=== PATIENT | female | born 1985 | race Caucasian/White ===

== ENCOUNTER → 2019-04-26 | Outpatient (REF) | payer OTHER, MEDICAID ==
[2019-04-26 16:40] LABS: HEMATOCRIT 40.5 % (36.0-47.0); HEMOGLOBIN 12.6 g/dl (12.0-15.5); MEAN CORPUSCULAR HGB CONC 31.1 g/dl (32.0-36.5); WHITE BLOOD COUNT 6.3 10^3/uL (4.0-10.0)
[2019-04-26 16:47] LABS: ALBUMIN 3.7 GM/DL (3.2-5.2); ALT/SGPT 19 U/L (12-78); BILIRUBIN,TOTAL 0.2 MG/DL (0.2-1.0); BLOOD UREA NITROGEN 11 MG/DL (7-18); CALCIUM LEVEL 8.5 MG/DL (8.5-10.1); CARBON DIOXIDE LEVEL 28 MEQ/L (21-32); CHLORIDE LEVEL 108 MEQ/L (98-107); CREATININE FOR GFR 0.66 MG/DL (0.55-1.30); GLOMERULAR FILTRATION RATE > 60.0 (>60); GLUCOSE, FASTING 81 MG/DL (70-100); POTASSIUM SERUM 4.4 MEQ/L (3.5-5.1); SODIUM LEVEL 142 MEQ/L (136-145); TOTAL PROTEIN 6.8 GM/DL (6.4-8.2)
[2019-04-26 18:03] LABS: PLATELET COUNT, AUTOMATED 93 10^3/uL (150-450)
== END ==
LOC: M SFHCLACO 15:17
PROVIDERS: ATTEND Physician Assistant
DX: D64.9 Anemia, unspecified (principal); D50.0 Iron deficiency anemia secondary to blood loss (chronic); K21.9 Gastro-esophageal reflux disease without esophagitis; R73.9 Hyperglycemia, unspecified

== ENCOUNTER → 2020-09-02 | Outpatient (REF) | payer OTHER, MEDICAID ==
[2020-09-02 13:05] LABS: ALBUMIN 3.9 GM/DL (3.2-5.2); ALT/SGPT 15 U/L (12-78); BILIRUBIN,TOTAL 0.5 MG/DL (0.2-1.0); BLOOD UREA NITROGEN 7 MG/DL (7-18); CALCIUM LEVEL 9.1 MG/DL (8.5-10.1); CARBON DIOXIDE LEVEL 30 MEQ/L (21-32); CHLORIDE LEVEL 107 MEQ/L (98-107); CREATININE FOR GFR 0.73 MG/DL (0.55-1.30); GLOMERULAR FILTRATION RATE > 60.0 (>60); GLUCOSE, FASTING 65 MG/DL (70-100); HEMATOCRIT 42.7 % (36.0-47.0); HEMOGLOBIN 13.3 g/dl (12.0-15.5); MAGNESIUM LEVEL 2.3 MG/DL (1.8-2.4); MEAN CORPUSCULAR HEMOGLOBIN 27.8 pg (27.0-33.0); MEAN CORPUSCULAR HGB CONC 31.1 g/dl (32.0-36.5); MEAN CORPUSCULAR VOLUME 89.1 fl (80.0-96.0); PLATELET COUNT, AUTOMATED 84 10^3/uL (150-450); POTASSIUM SERUM 4.5 MEQ/L (3.5-5.1); RED BLOOD COUNT 4.79 10^6/uL (4.00-5.40); SODIUM LEVEL 139 MEQ/L (136-145); TOTAL PROTEIN 6.9 GM/DL (6.4-8.2); WHITE BLOOD COUNT 6.8 10^3/uL (4.0-10.0)
[2020-09-04 07:07] LABS: CREATININE, URINE 273.4 mg/dL (20.0-300.0); TRAMADOL, URINE Positive (Cutoff=200); TRAMADOL, URINE (GC/MS) >5000 ng/mL (Cutoff=100)
== END ==
LOC: M SFHCADAM 10:01
PROVIDERS: ATTEND Physician Assistant
DX: D69.6 Thrombocytopenia, unspecified (principal); D50.0 Iron deficiency anemia secondary to blood loss (chronic); Z79.899 Other long term (current) drug therapy; K21.00 Gastro-esophageal reflux disease with esophagitis, without bleeding

== ENCOUNTER → 2020-11-23 | Outpatient (REF) | payer OTHER, MEDICAID ==
[2020-11-23 18:30] LABS: HEMATOCRIT 41.6 % (36.0-47.0); HEMOGLOBIN 12.9 g/dl (12.0-15.5); MEAN CORPUSCULAR HEMOGLOBIN 27.7 pg (27.0-33.0); MEAN CORPUSCULAR VOLUME 89.5 fl (80.0-96.0); PLATELET COUNT, AUTOMATED 102 10^3/uL (150-450); RED BLOOD COUNT 4.65 10^6/uL (4.00-5.40); WHITE BLOOD COUNT 4.7 10^3/uL (4.0-10.0)
[2020-11-23 18:59] LABS: BLOOD UREA NITROGEN 10 MG/DL (7-18); CALCIUM LEVEL 9.5 MG/DL (8.5-10.1); CARBON DIOXIDE LEVEL 29 MEQ/L (21-32); CHLORIDE LEVEL 106 MEQ/L (98-107); CREATININE FOR GFR 0.66 MG/DL (0.55-1.30); GLOMERULAR FILTRATION RATE > 60.0 (>60); GLUCOSE, FASTING 84 MG/DL (70-100); POTASSIUM SERUM 4.6 MEQ/L (3.5-5.1); SODIUM LEVEL 141 MEQ/L (136-145)
== END ==
LOC: M SFHCADAM 12:10
PROVIDERS: ATTEND Physician Assistant
DX: Z01.419 Encounter for gynecological examination (general) (routine) without abnormal findings (principal)

== ENCOUNTER → 2020-12-29 | Outpatient (CLI) | payer OTHER, MEDICAID ==
--- NOTE | 2020-12-31 02:09 | ECWPNPC ---
PATIENT NAME: VIKY ARRIOLA : 1985 GENDER: FEMALE VISIT DATE: 12/29/2020 DISCHARGE DATE: 12/29/20 1348 VISIT LOCKED DATE TIME: PHYSICIAN: JONAH GAITAN PHYSICIAN PAGER NO: ACTIVE RESOURCE: JONAH GAITAN REASON FOR APPOINTMENT 1. BACK PAIN HISTORY OF PRESENT ILLNESS DEPRESSION SCREENING: PHQ-2 (2015 EDITION) LITTLE INTEREST OR PLEASURE IN DOING THINGS?NOT AT ALL FEELING DOWN, DEPRESSED, OR HOPELESS?SEVERAL DAYS TOTAL SCORE1 35-YEAR-OLD FEMALE IN FOR INITIAL PAIN CONSULT REGARDING LOW BACK PAIN. PATIENT IS CURRENTLY ON TRAMADOL AND ADMITS THAT THIS DOES NOT HELP HER PAIN SHE FURTHER STATES SHE HAS BEEN ON GABAPENTIN IN THE PAST AND THAT DID NOT HELP HER PAIN EITHER. WHEN ASKED PATIENT DENIES RECENT MRI. SHE DOES STATE THAT SHE WAS SEEN BY [facility] IN [place] HOWEVER SHE HAD TO STOP SEEING THEM SHE WAS FREQUENTLY MISSING APPOINTMENTS. SHE RATES HER PAIN CURRENTLY AT A 9 OUT OF 10 AND DESCRIBES IT ACHING, BURNING, THROBBING, AND NUMBNESS. GENERAL: - - -. FALL RISK SCREENING: SCREENING ONE FALL REPORTED IN THE LAST YEAR WITH [facility]. PATIENT SOUGHT TREATMENT AT URGENT CARE.. PAIN SCREENING: PATIENT HAS A COMPLAINT OF ACUTE OR CHRONIC PAIN :YES LOCATION OF PAIN:LOW BACK INTENSITY OF PAIN (SCALE OF 1 TO 10):9 WHAT DOES YOUR PAIN FEEL LIKE:ACHING, BURNING, THROBBING, OTHER NUMBNESS DURATION:CONTINOUS, AWAKENS FROM SLEEP PAIN IS INCREASED BY:ACTIVITIES, PROLONGED STANDING PAIN IS DECREASED BY:OTHERS NOTHING HELPS THE PAIN NURSING NOTE: - - -. PAIN CENTER INTAKE QUESTIONS: DO YOU HAVE A HISTORY OF MRSA? :NO DO YOU TAKE A BLOOD THINNERS? :NO DO YOU HAVE ANY BLEEDING DISORDERS? :YES IPT ANY NEW NUMBNESS OR WEAKNESS IN YOUR LEGS OR ARMS? :YES BILATERAL LEG AND ARMS ANY PACEMAKER,DEFIBRILLATOR, OR DORSAL COLUMN STIMULATOR? :NO DO YOU HAVE ANY RASHES OR OPEN SORES? :NO ARE YOU ALLERGIC TO IV DYE? :NO ARE YOU DIABETIC? :NO ANY NEW PROBLEMS WITH YOUR MEDICATIONS? :NO HAVE YOU RECEIVED A VACCINE IN THE PAST 30 DAYS? :NO DO YOU PLAN TO RECEIVE A VACCINE IN THE NEXT 21 DAYS? :NO DO YOU NEED ANY PRESCRIPTION? :NO DO YOU TAKE ANY IMMUNOSUPPRESSIVE MEDICATIONS? :NO CURRENT MEDICATIONS TAKING NASACORT ALLERGY 24HR 55 MCG/ACT AEROSOL 1 SPRAY IN EACH NOSTRIL NASALLY ONCE A DAY TAKING CETIRIZINE HCL 5 MG TABLET 1 TABLET ORALLY ONCE A DAY AT BEDTIME TAKING FAMOTIDINE 20 MG TABLET 1 TABLET AT BEDTIME ORALLY TWICE A DAY TAKING SUCRALFATE 1 GM TABLET 1 TABLET AT BEDTIME ON AN EMPTY STOMACH BEFORE MEALS ORALLY FOUR TIMES A DAY TAKING OMEPRAZOLE 20 MG CAPSULE DELAYED RELEASE 1 CAPSULE ORALLY TWICE A DAY TAKING SUMATRIPTAN SUCCINATE 50 MG TABLET 1 TABLET AT ONSET OF HEADACHE, MAY REPEAT ONCE IN 2 HOURS ORALLY TWICE A DAY, MDD=2 TAKING TRAMADOL HCL 50 MG TABLET 1 TABLET NEEDED ORALLY TWICE A DAY, MDD=2, NOTES: FOR STOMACH AND BACK PAIN TAKING TIZANIDINE HCL 4 MG TABLET 1 TABLET NEEDED FOR MUDCLE SPASMS ORALLY THREE TIMES A DAY TAKING FLUTICASONE PROPIONATE 50 MCG/ACT SUSPENSION 1 SPRAY IN EACH NOSTRIL NASALLY ONCE A DAY TAKING ONDANSETRON HCL 4 MG TABLET 1 TABLET ORALLY EVERY 8 HRS NEEDED FOR NAUSEA, MDD=3 TAKING AMOXICILLIN 500 MG CAPSULE 1 CAPSULE ORALLY EVERY 12 HRS NOT-TAKING LORATADINE 10 MG TABLET 1 TABLET ORALLY ONCE A DAY NEEDED MEDICATION LIST REVIEWED AND RECONCILED WITH THE PATIENT PAST MEDICAL HISTORY FUNCTIONALLY ILLITERATE ITP (THROMBOCYTOPENIA) BIPOLAR, SCHIZOPHRENIA, ANXIETY, DEPRESSION ESOPHAGEAL REFLUX QUESTION OF ASTHMA LOW BACK PAIN OVARIAN CYSTS ENVIRONMENTAL ALLERGIES ALLERGIES ACETAMINOPHEN: HIVES, PER PATIENT, WHO IS UNRELIABLE - ALLERGY IBUPROFEN: HIVES, PER PATIENT, WHO IS UNRELIABLE, NAUSEA - ALLERGY ASPIRIN: HIVES, PER PATIENT, WHO IS UNRELIABLE - ALLERGY LATEX: HIVES - ALLERGY SUMAC SOCIAL HISTORY GENERAL: TOBACCO USE ARE YOU A:CURRENT SMOKER - STARTED SMOKING AT AGE 14, CLAIMS LESS THAN 1 PACK PER DAY HOW OFTEN DO YOU SMOKE CIGARETTES?EVERY DAY HOW SOON AFTER YOU WAKE UP DO YOU SMOKE YOUR FIRST CIGARETTE?6-30 MIN HOW MANY CIGARETTES A DAY DO YOU SMOKE?6-10 ARE YOU INTERESTED IN QUITTING?NOT READY TO QUIT PATIENT COUNSELED ON THE DANGERS OF TOBACCO USE AND URGED TO QUIT:05/28/2019 COUNSELED THE PATIENT ON SMOKING EFFECTS, EDUCATION [id number] LATEX QUESTIONNAIRE LATEX ALLERGY : HAVE YOU EVER DEVELOPED ANY TYPE OF REACTION AFTER HANDLING LATEX PRODUCTS SUCH RUBBER GLOVES, CONDOMS, DIAPHRAGMS, BALLOONS, SOCKS, OR UNDERWEAR?YES - PLEASE INDICATE :RUBBER GLOVES, CONDOMS LATEX ALLERGY : HAVE YOU EVER DEVELOPED ANY TYPE OF REACTION DURING OR AFTER DENTAL APPOINTMENT, VAGINAL/RECTAL EXAMINATION, SURGICAL PROCEDURE, OR ANY OTHER EXPOSURE?NO LATEX RISK : HAVE YOU EVER HAD ANY DIFFICULTY BREATHING OR HIVES AFTER EATING OR HANDLING ANY FRUITS, OR VEGETABLES; SUCH KIWI, BANANAS, STONE FRUITS, OR CHESTNUTSNO LATEX RISK : DO YOU HAVE A PREVIOUS PERSONAL HISTORY OF MORE THAN NINE SURGERIES, SPINA BIFIDA, OR REPEATED CATHERIZATIONS? NO LATEX RISK : ARE YOU FREQUENTLY EXPOSED TO LATEX PRODUCTS IN YOUR OCCUPATION?NO DATE ASKED : 12/29/2020 ALCOHOL USE: NO. LUNG CANCER SCREENING SMOKING STATUS:CURRENT SMOKER IS THE PATIENT BETWEEN THE AGE OF 57 AND 79?NO BMI CARE GOAL FOLLOW-UP BELOW NORMAL BMI FOLLOW-UPDIETARY EDUCATION FOR WEIGHT GAIN ALCOHOL SCREENING DID YOU HAVE A DRINK CONTAINING ALCOHOL IN THE PAST YEAR?NO POINTS0 INTERPRETATIONNEGATIVE RECREATIONAL DRUG USE DRUG USE?NO CAFFEINE CAFFEINE USE?YES HOW OFTEN AND HOW MUCH? ALL DAY HIV / HEP-C SCREENING HIV TEST OFFERED TO PATIENT:YES DATE OFFERED:07/19/2018 TEST ACCEPTED:NO REASON:PATIENT DECLINED BROCHURE PROVIDED TO PATIENTYES LANGUAGE LANGUAGES SPOKEN:SLOVENIAN EDUCATION LEVEL OF EDUCATION:FINISHED HIGH SCHOOL - SPECIAL EDUCATION, PATIENT CANNOT READ LEARNING BARRIERS / SPECIAL NEEDS CHANGE FROM LAST VISIT?NO BARRIERS TO LEARNING?YES COMMENTS FUNCTIONALLY ILLITERATE, RECOGNIZES SOME WORDS HEARING IMPAIRED?YES VISION IMPAIRED?YES COGNITIVELY IMPAIRED?NO READINESS TO LEARN?YES LEARNING PREFERENCES?YES : PREFERS TO HAVE THINGS READ TO HER LEARNING CAPABILITIES PRESENT?YES EMOTIONAL BARRIERS?NO SPECIAL DEVICES?YES :OTHER LEFT LEG BRACW, CRUTCHES TRADE ANALYST NEEDED?NO OCCUPATION: NEVER EMPLOYED, DISABLED SINCE CHILDHOOD. DIET: REGULAR. EXERCISE: CLEANS THE HOUSE, MOVES AROUND A LOT. MARITAL STATUS: , 4 CHILDREN, PLUS STEPCHILDREN. OTHERS AT HOME: , CHILDREN. REVIEW OF SYSTEMS CONSTITUTIONAL: ANY RECENT FEVER NO . CHILLS NO . WEIGHT CHANGE OF UNKNOWN REASONS NO . GASTROENTEROLOGY: NEW UNEXPLAINABLE CHANGES IN BOWEL CONTROL NO . CONSTIPATION NO . GENITOURINARY: ANY NEW CHANGE IN BLADDER CONTROL? NO . NEUROLOGY: NEW ONSET DIZZINESS OR NEUROLOGICAL CHANGES NOT MENTIONED NO . NEW NUMBNESS OR PAIN PATTERNS NOT MENTIONED AND PERTINENT TO TODAY'S VISIT NO . CARDIOLOGY: NEW CHEST PRESSURE NO . PATIENT DENIES NO . RESPIRATORY: UNEXPLAINABLE COUGH NO . NEW SHORTNESS OF BREATH NO . VITAL SIGNS WT 116 LBS, HT 63.5 IN, BMI 20.22 INDEX, BP 106/76 MM HG, HR 69 /MIN, RR 18 /MIN, TEMP 98.2 F, OXYGEN SAT % 100%, SAFE IN ENV? (Y/N) YES, REVIEWED BY: LUCINDA VAZQUEZ MA. EXAMINATION GENERAL EXAMINATION: GENERALNO ACUTE DISTRESS, WELL NOURISHED AND HYDRATED. PSYCHAPPROPRIATE MOOD AND AFFECT . LUNGS:CLEAR TO AUSCULTATION BILATERALLY, NO WHEEZES, RHONCHI, RALES. HEART:NO MURMURS, REGULAR RATE AND RHYTHM. BACK:POINT TENDER L4-L5, SURROUNDING SKIN SHOWS NO ERYTHEMA, ECCHYMOSIS, INCREASED WARMTH, AND/OR SKIN ERUPTIONS NOTED. . MUSCULOSKELETAL:NOTABLE WEAKNESS OF THE LEFT LOWER EXTREMITY, RIGHT LOWER EXTREMITY WITHIN NORMAL LIMITS . ASSESSMENTS LOW BACK PAIN - M54.5 (PRIMARY), WE WILL REFER HER TO THE PAIN CENTER IN [place] [facility] LOW BACK PAIN [facility] MRI SPINE, L.S. WITHOUT [id number] NOTES: 35-YEAR-OLD FEMALE IN FOR INITIAL PAIN CONSULT. GIVEN PRESENTING SYMPTOMS RECOMMENDED MRI FOR FURTHER EVALUATION AND FOLLOW-UP POST IMAGING. 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 PATIENT HAS EXPRESSED UNDERSTANDING OF AND WAS IN AGREEMENT WITH TREATMENT PLAN. GIVEN TIME TO ASK QUESTIONS AND EXPRESS CONCERNS. PROCEDURE CODES FA211 ESTABILISHED PATIENT [facility] CHARGE DISPOSITION & COMMUNICATION FOLLOW UP POST IMAGING (REASON: MRI L-SPINE WITHOUT CONTRAST ) ELECTRONICALLY SIGNED BY AMERICA YORK ON 12/30/2020 AT 10:11 AM EDT DISCLAIMER : THIS IS A VISIT SUMMARY EXTRACTED FROM THE [employer] CHART. IT IS NOT A COPY OF THE [employer] PROGRESS NOTE. KATIE
== END ==
LOC: M PAIN 13:00
PROVIDERS: ATTEND Family Medicine
DX: M54.5 Low back pain (principal); F31.9 Bipolar disorder, unspecified; F20.9 Schizophrenia, unspecified; F41.9 Anxiety disorder, unspecified; K21.9 Gastro-esophageal reflux disease without esophagitis; J30.9 Allergic rhinitis, unspecified; F17.210 Nicotine dependence, cigarettes, uncomplicated; Z79.899 Other long term (current) drug therapy; Z88.6 Allergy status to analgesic agent; Z91.040 Latex allergy status; Z91.048 Other nonmedicinal substance allergy status

== ENCOUNTER → 2021-02-16 | Outpatient (CLI) | payer OTHER ==
--- NOTE | 2021-02-17 08:17 | REP ---
INDICATION: LBP. COMPARISON: None. TECHNIQUE: Sagittal and axial T1 and T2-weighted scans are acquired in the usual fashion with and without fat saturation. Sequences include spin echo, turbo spin-echo, and STIR imaging sequences. FINDINGS: Lumbar vertebral body heights are preserved. Alignment is normal. Cortical and medullary bone signal intensity are normal. The pedicles and posterior elements are intact. There is no evidence of spondylolysis or spondylolisthesis. The tip of the conus medullaris is normal in position and appearance at L1. No extra spinal abnormality is appreciated. Axial and sagittal images taken at L1-2, L2-3, and L3-4 levels show no evidence of disc protrusion, central canal stenosis, or foraminal narrowing at these upper lumbar levels. At the L4-5 level, there is mild degenerative disc narrowing and there is mild diffuse disc bulging of the posterior disc margin. No foraminal narrowing or spinal stenosis is seen. Facets are unremarkable. At L5-S1, there is facet hypertrophy bilaterally mild in degree. There is a left foraminal small focal disc protrusion at the L5-S1 level. This produces mild foraminal narrowing. this disc protrusion is best appreciated on parasagittal images. Visualized upper sacrum is unremarkable. IMPRESSION: Mild degenerative disc disease at L4-5 and L5-S1. Small left foraminal disc protrusion at L5-S1. Mild facet hypertrophy bilaterally at L5-S1. <Electronically signed by Larry Barreto > 02/17/21 2192
== END ==
LOC: M RAD 17:45
PROVIDERS: ATTEND Family Medicine
DX: M51.26 Other intervertebral disc displacement, lumbar region (principal); M51.36 Other intervertebral disc degeneration, lumbar region